=== PATIENT | male | born 1945 | race Caucasian/White ===

== ENCOUNTER 2017-12-13 11:41 | Inpatient (IN) | payer MEDICARE ==
[~2017-12-13] VITALS: Ht 177.8 cm; Wt 85.2 kg
[2017-12-13] VITALS (18 sets, daily range): BP systolic 104–158; BP diastolic 65–87; PULSE 90–98; RESP 18–34; TEMP 97.4–98; O2SAT 91–97
[2017-12-13] MEDS ORDERED: FUROSEMIDE 100 MG/10 ML VIAL IVP ONE (14:00)
[2017-12-13] MEDS: RESP: ALBUTEROL 2.5 MG/IPRATROPIUM 0.5 MG NEB (SCH) INH ×2 (14:11→14:12)
--- NOTE | 2017-12-13 14:20 | PD ---
HPI Chief Complaint: Respiratory Symptoms Time Seen by Provider: 13:46 Travel History International Travel<30 days: No Contact w/Intl Traveler<30days: No Traveled to known affect area: No History of Present Illness HPI This patient complains of shortness of breath and leg swelling. Duration is 1- 2 weeks. Symptoms severity is moderate. Denying fever. He reports history of COPD. He says that his physician has recently ordered home oxygen although he is not receiving any at home yet. Does have nebulizer treatment. He has developed prominent edema of the legs. No alleviating factors. No exacerbating factors. He does not smoke at this time. [facility] Social History Alcohol Use: No Tobacco Use: No Substance Use: No Allergies-Medications (Allergen,Severity, Reaction): Coded Allergies: No Known Allergies (Verified Allergy, Unknown, 02/12/05) Reported Meds & Prescriptions Reported Meds & Active Scripts Active Review of Systems General / Constitutional: No: Fever Eyes: No: Visual changes HENT: No: Headaches Cardiovascular: Positive: Edema, No: Chest Pain or Discomfort Respiratory: Positive: Cough, Shortness of Breath Gastrointestinal: No: Abdominal Pain Genitourinary: No: Dysuria Musculoskeletal: Positive: Edema, No: Pain Skin: No Rash Neurologic: No: Weakness Psychiatric: No: Depression Endocrine: No: Polydipsia Hematologic/Lymphatic: No: Easy Bruising Physical Exam Narrative GENERAL: Well-nourished, well-developed patient in no apparent distress. SKIN: Focused skin assessment reveals no rash and nodules. Skin is Warm and dry. HEAD: Atraumatic. Normocephalic. EYES: Pupils equal and round. No scleral icterus. No injection or drainage. ENT: No nasal bleeding or discharge. Mucous membranes pink and moist. NECK: Trachea midline. No JVD. CARDIOVASCULAR: Regular rate and rhythm. No murmur appreciated. RESPIRATORY: No accessory muscle use. Diffuse rhonchi with some expiratory wheeze. There is some sparse basilar crackles. Breath sounds equal bilaterally. GASTROINTESTINAL: Abdomen soft, non-tender, nondistended. Hepatic and splenic margins not palpable. MUSCULOSKELETAL: No obvious deformities. No clubbing. No cyanosis. Severe pitting edema of the feet and lower legs and to some degree upper legs. NEUROLOGICAL: Awake and alert. No obvious cranial nerve deficits. Motor grossly within normal limits. Normal speech. PSYCHIATRIC: Appropriate mood and affect; insight and judgment normal. Data Data Last Documented VS Vital Signs Date Time Temp Pulse Resp B/P (MAP) Pulse Ox O2 Delivery O2 Flow Rate FiO2 12/13/17 15:46 91 20 96 Nasal Cannula 2.00 12/13/17 15:42 140/85 (103) 12/13/17 12:17 97.7 Orders Orders Complete Blood Count With Diff (12/13/17 13:59) Basic Metabolic Panel (Bmp) (12/13/17 13:59) B-Type Natriuretic Peptide (12/13/17 13:59) Ckmb (Isoenzyme) Profile (12/13/17 13:59) Troponin I (12/13/17 13:59) Iv Access Insert/Monitor (12/13/17 13:59) Electrocardiogram (12/13/17 13:59) Ecg Monitoring (12/13/17 13:59) Oximetry (12/13/17 13:59) Oxygen Administration (12/13/17 13:59) Chest, Single Ap (12/13/17 13:59) Sodium Chloride 0.9% Flush (Ns Flush) (12/13/17 14:00) Albuterol-Ipratropium Neb (Duoneb Neb) (12/13/17 14:00) Furosemide Inj (Lasix Inj) (12/13/17 14:00) CKMB (12/13/17 14:20) CKMB% (12/13/17 14:20) Hepatic Functional Panel (12/13/17 15:28) 3% Saline Inj (Sodium Chloride 3% Inj) (12/13/17 15:30) Hepatic Functional Panel (12/13/17 14:20) Labs Laboratory Tests Test 12/13/17 14:20 White Blood Count 22.2 TH/MM3 Red Blood Count 4.98 MIL/MM3 Hemoglobin 15.5 GM/DL Hematocrit 45.3 % Mean Corpuscular Volume 91.0 FL Mean Corpuscular Hemoglobin 31.1 PG Mean Corpuscular Hemoglobin Concent 34.2 % Red Cell Distribution Width 11.9 % Platelet Count 507 TH/MM3 Mean Platelet Volume 5.8 FL CBC Comment AUTO DIFF Differential Total Cells Counted 100 Neutrophils % (Manual) 63 % Lymphocytes % 35 % Monocytes % 2 % Neutrophils # (Manual) 14.0 TH/MM3 Differential Comment FINAL DIFF MANUAL Platelet Estimate HIGH Platelet Morphology Comment NORMAL Blood Urea Nitrogen 9 MG/DL Creatinine 0.57 MG/DL Random Glucose 104 MG/DL Calcium Level 8.2 MG/DL Sodium Level 106 MEQ/L Potassium Level 4.0 MEQ/L Chloride Level 65 MEQ/L Carbon Dioxide Level 31.6 MEQ/L Anion Gap 9 MEQ/L Estimat Glomerular Filtration Rate 140 ML/MIN Total Creatine Kinase 993 U/L Troponin I LESS THAN 0.02 NG/ML B-Type Natriuretic Peptide 38 PG/ML MDM Medical Decision Making Medical Screen Exam Complete: Yes Emergency Medical Condition: Yes Medical Record Reviewed: Yes Differential Diagnosis CHF, COPD, pneumonia Narrative Course I have reviewed the patient's electronic medical record. IV placed I gave him 60 mg IV Lasix I gave him 2 nebulizer treatments I reviewed his chest x-ray which shows no consolidation or pneumothorax I reviewed his EKG which shows sinus rhythm without ectopy or ST elevation Extended cardiac monitoring shows sinus rhythm without ectopy IV placed CBC is noted metabolic profile is markedly abnormal with a sodium of 106 making him critically ill and making him at risk for seizure and altered mental status CK is 900s with normal MB percent Troponin is normal Patient has history of low sodium in the past but can't recall a specific number or reason why. He does admit to drinking 6 beers Daily. Also he takes a diuretic. I've added LFTs. Given that he is markedly fluid overloaded I'm starting 3% sodium chloride Patient be admitted by the hospitalist who is evaluating him right now. He recommends ICU admission. Critical Care Narrative Aggregate critical care time was 38 minutes. Time to perform other separately billable procedures was not included in the critical care time. My time did not include minutes spent treating any other patients simultaneously or on activities that did not directly contribute to the patient's treatment. The services I provided to this patient were to treat and/or prevent clinically significant deterioration that could result in: Cardiac arrhythmia, seizure, hypoxemic brain injury I provided critical care services requiring my management, as noted below: Chart data review, documentation time, medication orders and management, vital sign assessments/reviewing monitor data, ordering and reviewing lab tests, ordering and interpreting/reviewing x-rays and diagnostic studies, care of the patient and discussion of the patient with the admitting physicians. Diagnosis Primary Impression: Hyponatremia Additional Impressions: Leg edema Shortness of breath Admitting Information Admitting Physician Requests: Admit Armin Lemos MD Dec 13, 2017 14:20
[2017-12-13] MEDS: SODIUM CHLORIDE 0.9% FLUSH 10 ML FLUSH IVF PRN ×2 (14:27→15:35)
[2017-12-13 14:28] LABS: HEMATOCRIT 45.3 % (39.0-51.0); HEMOGLOBIN 15.5 GM/DL (13.0-17.0); MEAN CORPUSCULAR HEMOGLOBIN 31.1 PG (27.0-34.0); MEAN CORPUSCULAR HGB CONC 34.2 % (32.0-36.0); MEAN PLATELET VOLUME 5.8 FL (7.0-11.0); PLATELET COUNT 507 TH/MM3 (150-450); RED BLOOD COUNT 4.98 MIL/MM3 (4.50-5.90); RED CELL DISTRIBUTION WIDTH 11.9 % (11.6-17.2); WHITE BLOOD COUNT 22.2 TH/MM3 (4.0-11.0)
--- NOTE | 2017-12-13 14:48 | RADRPT ---
EXAM DATE/TIME: 12/13/2017 14:25 [place] COMPARISON: No previous studies available for comparison. INDICATIONS : Short of breath MEDICAL HISTORY : Chronic obstructive pulmonary disease. SURGICAL HISTORY : None. ENCOUNTER: Initial ACUITY: 2 weeks PAIN SCORE: 0/10 LOCATION: Bilateral chest FINDINGS: A single view of the chest demonstrates the lungs to be symmetrically aerated without evidence of mas s, infiltrate or effusion. There is hyperaeration bilaterally with chronic interstitial changes. The re is some scarring in the right costophrenic angle. The cardiomediastinal contours are unremarkable. Osseous structures are intact. CONCLUSION: 1. No acute infiltrates. 2. Hyperaeration with chronic interstitial changes bilaterally. Kishan Alex MD on December 13, 2017 at 14:45 Board Certified Radiologist. This report was verified electronically.
[2017-12-13 15:01] LABS: BICARBONATE 31.6 MEQ/L (21.0-32.0); BLOOD UREA NITROGEN 9 MG/DL (7-18); CALCIUM 8.2 MG/DL (8.5-10.1); CHLORIDE 65 MEQ/L (98-107); CREATININE 0.57 MG/DL (0.60-1.30); GLOMERULAR FILTRATION RATE 140 ML/MIN (>89); GLUCOSE,RANDOM 104 MG/DL (74-106); TROPONIN I LESS THAN 0.02 NG/ML (0.02-0.05)
[2017-12-13 15:19] LABS: LYMPHOCYTES 35 % (9-44); MONOCYTES 2 % (0-8); POLYS (SEG NEUTROPHILS) 63 % (16-70); SODIUM (NA) 106 MEQ/L (136-145)
[2017-12-13] MEDS ORDERED: 3% SALINE INJ 250 ML IV ONE (15:30)
[2017-12-13] MEDS ORDERED: VENTAER INH (16:04)
[2017-12-13] MEDS ORDERED: AMLO5TAB2 PO (16:04)
[2017-12-13] MEDS ORDERED: PRED20 PO (16:04)
[2017-12-13] MEDS ORDERED: LEVO500T8 PO (16:04)
[2017-12-13] MEDS ORDERED: UMEC1AER INH (16:04)
[2017-12-13] MEDS ORDERED: VALS1TAB65 PO (16:04)
[2017-12-13 16:12] LABS: ALBUMIN 3.2 GM/DL (3.4-5.0); ALKALINE PHOSPHATASE 82 U/L (45-117); ALT (GPT) 67 U/L (12-78); AST (GOT) 103 U/L (15-37); DIRECT BILIRUBIN ADULT 0.3 MG/DL (0.0-0.2); INDIRECT BILIRUBIN 0.6 MG/DL (0.0-0.8); TOTAL BILIRUBIN ADULT 0.9 MG/DL (0.2-1.0); TOTAL PROTEIN 7.4 GM/DL (6.4-8.2)
--- NOTE | 2017-12-13 16:14 | HHI.HP ---
[facility] Amirah Jane M.D. Admission Diagnosis critical hyponatremia,leg edema, short of breath Diagnoses: Chief Complaint: Slowed thinking Travel History International Travel<30 Days: No Contact w/Intl Traveler <30 Da: No Traveled to Known Affected Are: No History of Present Illness 72-year-old white male being admitted for symptomatic severe hyponatremia. Patient was in his usual state of health until about a few days ago when his significant other and noted that he he started becoming very slow in his thinking. She says that he became more fatigued in his energy level and slowed in his responses. In addition to that he had some increased shortness of breath and increased lower tremor he edema and went to his fish packer as well as just recently prescribed steroids as well as Lasix. He was brought in today due to the persistent in his [employer] symptoms and his inability to walk and carry his own weight. Significant other states that the patient doesn't make sense but is just very slow in his thinking. Patient herself denies any new pain anywhere. Review of Systems Except as stated in HPI: all other systems reviewed are Neg Past Family Social History Past Medical History Chronic hyponatremia Allergies: Coded Allergies: No Known Allergies (Verified Allergy, Unknown, 02/12/05) Family History No family history of liver disease or colorectal cancer Social History He does smoke, and does drink 3-4 beers a day for many years Physical Exam Vital Signs Vital Signs Date Time Temp Pulse Resp B/P (MAP) Pulse Ox O2 Delivery O2 Flow Rate FiO2 12/13/17 15:46 91 20 96 Nasal Cannula 2.00 12/13/17 15:42 96 20 140/85 (103) 95 Nasal Cannula 2.00 12/13/17 14:57 92 18 158/87 (110) 96 Nasal Cannula 2.00 12/13/17 14:15 92 Nasal Cannula 2.00 12/13/17 14:00 96 20 150/87 (108) 95 Nasal Cannula 2.00 12/13/17 13:30 20 94 Nasal Cannula 2.00 12/13/17 13:30 94 Nasal Cannula 2.00 12/13/17 13:20 92 22 94 Nasal Cannula 2.00 12/13/17 12:17 97.7 97 18 145/79 (101) 95 12/13/17 11:45 22 90 Nasal Cannula 2.00 Physical Exam VS: afebrile GENERAL: Elderly white male, obese, lying in bed, awake, SKIN: Warm and dry. EYES: No scleral icterus. No injection or drainage. ENT: No nasal bleeding or discharge. Mucous membranes pink and moist. CARDIOVASCULAR: Regular rate and rhythm. no murmurs. Does have moderate lower extremity edema bilaterally RESPIRATORY: No accessory muscle use. Clear to auscultation. Breath sounds equal bilaterally. GASTROINTESTINAL: Abdomen soft, non-tender, nondistended. Extremities: No clubbing, cyanosis. Does have some mild erythema diffusely over both lower legs MUSCULOSKELETAL: grossly intact ROM with 5/5 strength in upper and lower extremities proximally; adequate muscle bulk and tone for age and habitus NEUROLOGICAL: Awake and alert. No obvious cranial nerve deficits. No facial droop nor slurred speech noted. PSYCHIATRIC: Appropriate mood and affect; insight and judgment normal. has slowed responses but does maintain good eye contact and responds appropriately Laboratory Laboratory Tests Test 12/13/17 14:20 White Blood Count 22.2 Red Blood Count 4.98 Hemoglobin 15.5 Hematocrit 45.3 Mean Corpuscular Volume 91.0 Mean Corpuscular Hemoglobin 31.1 Mean Corpuscular Hemoglobin Concent 34.2 Red Cell Distribution Width 11.9 Platelet Count 507 Mean Platelet Volume 5.8 CBC Comment AUTO DIFF Differential Total Cells Counted 100 Neutrophils % (Manual) 63 Lymphocytes % 35 Monocytes % 2 Neutrophils # (Manual) 14.0 Differential Comment FINAL DIFF MANUAL Platelet Estimate HIGH Platelet Morphology Comment NORMAL Blood Urea Nitrogen 9 Creatinine 0.57 Random Glucose 104 Calcium Level 8.2 Sodium Level 106 Potassium Level 4.0 Chloride Level 65 Carbon Dioxide Level 31.6 Anion Gap 9 Estimat Glomerular Filtration Rate 140 Total Creatine Kinase 993 Creatine Kinase MB 31.6 Creatine Kinase MB % 3.2 Troponin I LESS THAN 0.02 B-Type Natriuretic Peptide 38 Result Diagram: 12/13/17 1420 12/13/17 1420 Imaging Last Impressions Chest X-Ray 12/13/17 1359 Signed Impressions: Service Date/Time: Wednesday, December 13, 2017 14:25 - CONCLUSION: 1. No acute infiltrates. 2. Hyperaeration with chronic interstitial changes bilaterally. Kishan Alex MD Caprinmariann VTE Risk Assessment Caprini VTE Risk Assessment: Mod/High Risk (score >= 2) Caprini Risk Assessment Model Point Value = 1 Point Value = 2 Point Value = 3 Point Value = 5 Age 41-60 Minor surgery BMI > 25 kg/m2 Swollen legs Varicose veins or History of unexplained or recurrent spontaneous Oral contraceptives or hormone replacement Sepsis (< 1 month) Serious lung disease, including pneumonia (< 1 month) Abnormal pulmonary function Acute myocardial infarction Congestive heart failure (< 1 month) History of inflammatory bowel disease Medical patient at bed rest Age 61-74 Arthroscopic surgery Major open surgery (> 45 min) Laparoscopic surgery (> 45 min) Malignancy Confined to bed (> 72 hours) Immobilizing plaster cast Central venous access Age >= 75 History of VTE Family history of VTE Factor V Leiden Prothrombin [id number] Lupus anticoagulant Anticardiolipin antibodies Elevated serum homocysteine Heparin-induced thrombocytopenia Other congenital or acquired thrombophilia Stroke (< 1 month) Elective arthroplasty Hip, pelvis, or leg fracture Acute spinal cord injury (< 1 month) Prophylaxis Regimen Total Risk Factor Score Risk Level Prophylaxis Regimen 0-1 Low Early ambulation 2 Moderate Order ONE of the following: *Sequential Compression Device (SCD) *Heparin 5000 units SQ BID 3-4 Higher Order ONE of the following medications: *Heparin 5000 units SQ TID *Enoxaparin/Lovenox 40 mg SQ daily (WT < 150 kg, CrCl > 30 mL/min) *Enoxaparin/Lovenox 30 mg SQ daily (WT < 150 kg, CrCl > 10-29 mL/min) *Enoxaparin/Lovenox 30 mg SQ BID (WT < 150 kg, CrCl > 30 mL/min) AND/OR *Sequential Compression Device (SCD) 5 or more Highest Order ONE of the following medications: *Heparin 5000 units SQ TID (Preferred with Epidurals) *Enoxaparin/Lovenox 40 mg SQ daily (WT < 150 kg, CrCl > 30 mL/min) *Enoxaparin/Lovenox 30 mg SQ daily (WT < 150 kg, CrCl > 10-29 mL/min) *Enoxaparin/Lovenox 30 mg SQ BID (WT < 150 kg, CrCl > 30 mL/min) AND *Sequential Compression Device (SCD) Assessment and Plan Assessment and Plan metabolic encephalopathy - Likely from severe hyponatremia 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 Admitting to ICU, having been started on 3% normal saline in the emergency room. Will monitor sodium levels closely. We'll administer 3% normal saline at 30 miles an hour for 2 hours, nursing instructed to notify M.D. about sodium level after this amount has been transfused and then M.D. is to make transition afterwards accordingly with either hypertonic normal saline are normal saline. unstable gait - ordering b12, mg, phos, and tsh levels - fall precautions, ST/OT/PT COPD - continue home inhalers, finish home prednisone course LE edema - lasix possible rhabdomyolysis - from ETOH, hydration based upon Na level lovenox fall precautions Physician Certification 2 Midnight Certification Type: Admission for Inpatient Services Order for Inpatient Services The services are ordered in accordance with Medicare regulations or non- Medicare payer requirements, as applicable. In the case of services not specified as inpatient-only, they are appropriately provided as inpatient services in accordance with the 2-midnight benchmark. Estimated LOS (days): 3 3 days is the estimated time the patient will need to remain in the hospital, assuming treatment plan goals are met and no additional complications. Post-Hospital Plan: Not yet determined Jarrod Grijalva MD Dec 13, 2017 16:14
[2017-12-13 17:03] LABS: INTERNATIONAL NORMALIZED RATIO 1.1 RATIO; MAGNESIUM 1.8 MG/DL (1.5-2.5); PROTHROMBIN TIME - PATIENT 10.7 SEC (9.8-11.6)
[2017-12-13 17:07] LABS: PHOSPHORUS 2.6 MG/DL (2.5-4.9)
[2017-12-13] MEDS ORDERED: CHLORHEXIDINE GLUCONATE 2 % 1 PACK (2 CLOTHS)(extra cloths) TOPICAL PRN (18:15)
[2017-12-13] MEDS: RESP: ALBUTEROL 2.5 MG/3 ML NEB (SCH) NEB (20:00)
[2017-12-13] MEDS: predniSONE 20 MG TAB PO SCH (20:42)
[2017-12-13] MEDS ORDERED: [UNRECOGNIZED DRUG - OTHER] IV ONE (23:45)
[2017-12-14] VITALS (34 sets, daily range): BP systolic 104–157; BP diastolic 65–105; PULSE 74–102; RESP 14–25; TEMP 97.1–98.3; O2SAT 78–100
[2017-12-14] MEDS: CHLORHEXIDINE GLUCONATE 2 % 1 PACK (2 CLOTHS)(taper/protocol) TOPICAL SCH (04:00)
[2017-12-14 07:00] LABS: AUTOMATED NEUTROPHIL # 13.9 TH/MM3 (1.8-7.7); BASOPHIL % 0.2 % (0.0-2.0); EOSINOPHIL % 0.2 % (0.0-4.0); HEMATOCRIT 42.3 % (39.0-51.0); HEMOGLOBIN 13.8 GM/DL (13.0-17.0); LYMPH % 31.7 % (9.0-44.0); LYMPHOCYTE # 7.1 TH/MM3 (1.0-4.8); MEAN CORPUSCULAR HEMOGLOBIN 29.9 PG (27.0-34.0); MEAN CORPUSCULAR HGB CONC 32.5 % (32.0-36.0); MEAN PLATELET VOLUME 6.8 FL (7.0-11.0); MONO % 6.7 % (0.0-8.0); MONOCYTE # 1.5 TH/MM3 (0-0.9); NEUT % 61.2 % (16.0-70.0); PLATELET COUNT 412 TH/MM3 (150-450); RED CELL DISTRIBUTION WIDTH 11.7 % (11.6-17.2); WHITE BLOOD COUNT 22.5 TH/MM3 (4.0-11.0)
[2017-12-14 07:31] LABS: BICARBONATE 32.1 MEQ/L (21.0-32.0); CALCIUM 7.8 MG/DL (8.5-10.1); CREATININE 0.45 MG/DL (0.60-1.30)
[2017-12-14] MEDS: RESP: ALBUTEROL 2.5 MG/3 ML NEB (SCH) NEB ×3 (07:47→19:48)
[2017-12-14 08:07] LABS: BANDS 3 % (0-6); LYMPHOCYTES 20 % (9-44); MONOCYTES 3 % (0-8); NEUTROPHIL # MANUAL DIFF 17.3 TH/MM3 (1.8-7.7); POLYS (SEG NEUTROPHILS) 74 % (16-70)
[2017-12-14] MEDS ORDERED: POTASSIUM CHLORIDE 10 MEQ CONTROLLED RELEASE TAB PO ONE (08:30)
[2017-12-14] MEDS ORDERED: 3% SALINE INJ 250 ML IV ONE ×2 (08:45→19:00)
[2017-12-14] MEDS: UMECLIDINIUM 62.5 MCG/VILANTEROL 25 MCG INHALER INH SCH (09:00)
--- NOTE | 2017-12-14 13:42 | HHI.PR ---
Subjective Remarks Nursing denies any deterioration since last night. The patient's significant other thinks that his mentation is just slightly improved. Patient himself has no further complaints. Objective Vital Signs Date Time Temp Pulse Resp B/P (MAP) Pulse Ox O2 Delivery O2 Flow Rate FiO2 12/14/17 11:00 76 14 118/71 (87) 100 12/14/17 10:00 78 14 127/72 (90) 93 12/14/17 10:00 84 12/14/17 09:12 84 17 150/80 (103) 92 12/14/17 09:00 86 19 144/85 (104) 92 12/14/17 08:16 86 17 149/84 (105) 95 12/14/17 08:01 97.1 94 24 157/92 (113) 91 12/14/17 08:00 102 18 94 12/14/17 08:00 84 12/14/17 07:49 96 3.00 12/14/17 07:46 74 14 133/78 (96) 97 12/14/17 07:46 74 14 133/78 (96) 97 12/14/17 07:31 74 14 129/78 (95) 97 12/14/17 07:31 74 14 129/78 (95) 97 12/14/17 07:16 76 15 136/78 (97) 96 12/14/17 07:16 76 15 136/78 (97) 96 12/14/17 07:01 74 15 128/81 (97) 95 12/14/17 07:01 74 15 128/81 (97) 95 12/14/17 07:00 74 16 94 12/14/17 07:00 74 16 94 12/14/17 06:00 80 12/14/17 06:00 80 17 151/90 (110) 93 12/14/17 05:00 78 16 136/72 (93) 92 12/14/17 04:00 97.7 84 19 138/81 (100) 92 12/14/17 04:00 84 12/14/17 03:00 86 18 125/86 (99) 92 12/14/17 02:00 86 12/14/17 02:00 86 20 131/73 (92) 95 12/14/17 01:00 88 19 122/72 (89) 95 12/14/17 00:00 92 12/14/17 00:00 98.3 92 21 121/73 (89) 95 12/13/17 23:00 92 21 134/76 (95) 93 12/13/17 22:00 90 12/13/17 22:00 90 34 104/66 (79) 91 12/13/17 21:00 98 22 137/80 (99) 94 12/13/17 20:00 96 12/13/17 20:00 94 Nasal Cannula 3.00 12/13/17 20:00 98.0 96 20 137/78 (97) 94 12/13/17 19:00 94 22 148/84 (105) 94 12/13/17 18:15 92 19 136/83 (100) 97 12/13/17 18:00 94 19 143/78 (99) 95 12/13/17 18:00 93 12/13/17 17:55 92 20 120/65 (83) 97 12/13/17 17:52 97.4 94 21 113/79 (90) 96 12/13/17 17:45 96 23 94 12/13/17 16:53 18 141/83 (102) 93 Nasal Cannula 2.00 12/13/17 16:30 92 18 141/77 (98) 93 Nasal Cannula 2.00 12/13/17 15:46 91 20 96 Nasal Cannula 2.00 12/13/17 15:42 96 20 140/85 (103) 95 Nasal Cannula 2.00 12/13/17 14:57 92 18 158/87 (110) 96 Nasal Cannula 2.00 12/13/17 14:15 92 Nasal Cannula 2.00 12/13/17 14:00 96 20 150/87 (108) 95 Nasal Cannula 2.00 I/O 12/13/17 12/13/17 12/13/17 12/14/17 12/14/17 12/14/17 07:00 15:00 23:00 07:00 15:00 23:00 Intake Total 200 ml Output Total 2200 ml 500 ml Balance -2200 ml -300 ml Intake IV Total 200 ml Output Urine Total 2200 ml 500 ml Bladder Scan Volume Amount 384 ml Result Diagram: 12/14/17 0552 12/14/17 0552 Objective Remarks Patient lying in bed, sleeping, awoken which point he is alert Lungs are clear bilaterally, unlabored breathing No tremors or shakes Slightly improved lower extremity edema from yesterday A/P Assessment and Plan metabolic encephalopathy - Likely from severe hyponatremia, anticipate further improvement Severe asymptomatic 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 Has been improving gradually and to my satisfaction with 3% normal saline at a very steady rate. Continue current infusion rate at 15 mL's an hour. Monitor sodium closely, keep in ICU new hypokalemia - likely from fluid imbalance, oral KCL, checking Mg unstable gait - B12 magnesium TSH's and CK are all within normal limits - fall precautions, ST/OT/PT COPD - continue home inhalers, finish home prednisone course LE edema - Continue Lasix, monitor BMP possible rhabdomyolysis - from ETOH, hydration based upon Na level as above lovenox fall precautions Jarrod Grijalva MD Dec 14, 2017 13:42
--- NOTE | 2017-12-14 13:48 | EKG ---
Date Performed: 12/13/2017 Time Performed: 15:07:31 PTAGE: 72 years EKG: Sinus rhythm WITH OCCASIONAL SUPRAVENTRICULAR PREMATURE COMPLEXES POSSIBLE ANTERIOR MYOCARDIAL INFARCTION ABNORMA L ECG NO PREVIOUS TRACING DOCTOR: Jamal Linn Interpretating Date/Time 12/16/2017 07:22:57
[2017-12-14 15:59] LABS: BICARBONATE 32.9 MEQ/L (21.0-32.0); CREATININE 0.5 MG/DL (0.60-1.30)
[2017-12-14] MEDS: predniSONE 20 MG TAB PO SCH (19:19)
[2017-12-15] VITALS (24 sets, daily range): BP systolic 106–145; BP diastolic 66–94; PULSE 78–100; RESP 13–27; TEMP 97.3–98; O2SAT 90–98
[2017-12-15] MEDS: CHLORHEXIDINE GLUCONATE 2 % 1 PACK (2 CLOTHS)(taper/protocol) TOPICAL SCH (04:00)
[2017-12-15] MEDS ORDERED: FUROSEMIDE 20 MG/2 ML VIAL IV PUSH ONE (08:15)
[2017-12-15] MEDS: RESP: ALBUTEROL 2.5 MG/3 ML NEB (SCH) NEB ×3 (08:21→19:59)
[2017-12-15 08:55] LABS: BICARBONATE 33.4 MEQ/L (21.0-32.0); CALCIUM 8.6 MG/DL (8.5-10.1); CREATININE 0.63 MG/DL (0.60-1.30)
[2017-12-15 09:18] LABS: AUTOMATED NEUTROPHIL # 12.3 TH/MM3 (1.8-7.7); BASOPHIL # 0.2 TH/MM3 (0-0.2); BASOPHIL % 0.9 % (0.0-2.0); HEMATOCRIT 47.7 % (39.0-51.0); LYMPH % 37.6 % (9.0-44.0); LYMPHOCYTE # 8.2 TH/MM3 (1.0-4.8); MEAN CELL VOLUME 91.6 FL (80.0-100.0); MEAN CORPUSCULAR HEMOGLOBIN 30.6 PG (27.0-34.0); MEAN CORPUSCULAR HGB CONC 33.4 % (32.0-36.0); MEAN PLATELET VOLUME 6.7 FL (7.0-11.0); MONO % 4.5 % (0.0-8.0); PLATELET COUNT 441 TH/MM3 (150-450); RED BLOOD COUNT 5.21 MIL/MM3 (4.50-5.90); RED CELL DISTRIBUTION WIDTH 11.9 % (11.6-17.2); WHITE BLOOD COUNT 21.7 TH/MM3 (4.0-11.0)
[2017-12-15 09:19] LABS: HEMOGLOBIN 15.9 GM/DL (13.0-17.0)
[2017-12-15 09:43] LABS: BANDS 3 % (0-6); LYMPHOCYTES 17 % (9-44); MONOCYTES 2 % (0-8); NEUTROPHIL # MANUAL DIFF 17.6 TH/MM3 (1.8-7.7); POLYS (SEG NEUTROPHILS) 78 % (16-70)
[2017-12-15] MEDS ORDERED: 3% SALINE INJ 500 ML IV SCH (10:15)
--- NOTE | 2017-12-15 10:20 | HHI.PR ---
Subjective Remarks Nursing denies any deterioration since last night. Patient himself says he feels much more mentally sharp today. Has no new complaints. Objective Vital Signs Date Time Temp Pulse Resp B/P (MAP) Pulse Ox O2 Delivery O2 Flow Rate FiO2 12/15/17 08:22 94 Nasal Cannula 3.00 12/15/17 07:00 90 19 140/85 (103) 94 12/15/17 06:00 89 12/15/17 06:00 78 16 114/71 (85) 94 12/15/17 05:00 82 17 112/70 (84) 94 12/15/17 04:00 97.5 84 22 118/72 (87) 94 12/15/17 04:00 89 12/15/17 03:00 84 17 133/74 (93) 94 12/15/17 02:00 86 27 132/81 (98) 94 12/15/17 02:00 88 12/15/17 01:00 82 16 125/76 (92) 95 12/15/17 00:00 84 12/15/17 00:00 97.6 84 16 131/74 (93) 95 12/14/17 23:00 92 20 112/65 (81) 93 12/14/17 22:00 94 21 149/77 (101) 91 12/14/17 22:00 84 12/14/17 21:00 88 17 140/83 (102) 92 12/14/17 20:00 97.6 90 17 151/92 (111) 95 12/14/17 20:00 100 12/14/17 20:00 91 Nasal Cannula 3.00 12/14/17 19:48 93 Nasal Cannula 2.00 12/14/17 19:00 88 19 136/81 (99) 92 12/14/17 18:00 90 23 145/84 (104) 90 12/14/17 18:00 94 12/14/17 17:00 82 17 116/72 (87) 93 12/14/17 16:04 98 25 154/81 (105) 78 12/14/17 16:04 98.1 98 25 154/81 (105) 78 12/14/17 16:00 90 20 147/105 (119) 95 12/14/17 16:00 92 12/14/17 15:00 82 14 104/71 (82) 95 12/14/17 14:00 90 20 148/86 (106) 91 12/14/17 14:00 81 12/14/17 13:00 84 17 135/73 (93) 90 12/14/17 12:00 84 18 138/79 (98) 92 12/14/17 11:00 76 14 118/71 (87) 100 12/14/17 11:00 76 14 118/71 (87) 100 I/O 12/14/17 12/14/17 12/14/17 12/15/17 12/15/17 12/15/17 06:59 14:59 22:59 06:59 14:59 22:59 Intake Total 200 ml 360 ml 233 ml Output Total 500 ml 1120 ml 1000 ml Balance -300 ml -760 ml -767 ml Intake Oral 360 ml 10 ml IV Total 200 ml 223 ml Output Urine Total 500 ml 1120 ml 1000 ml Bladder Scan Volume Amount 384 ml # Bowel Movements 0 Result Diagram: 12/15/17 0829 12/15/17 0829 Objective Remarks Patient lying in bed, sleeping, easily awoken, appears much sharper today Lung sounds are clear bilaterally A/P Assessment and Plan metabolic encephalopathy - Significantly improved Severe asymptomatic hyponatremia - Improving as expected with hypertonic saline, continue judicious slow rate infusion, repeat sodium later today hypokalemia - Improved unstable gait - B12 magnesium TSH's and CK are all within normal limits - fall precautions, ST/OT/PT COPD - continue home inhalers, finish home prednisone course LE edema - Continue Lasix, monitor BMP possible rhabdomyolysis - rechecking CK in AM Leukocytosis - Likely from steroids, holding steady lovenox fall precautions Jarrod Grijalva MD Dec 15, 2017 10:20
[2017-12-15] MEDS: FUROSEMIDE 40 MG/4 ML VIAL IV PUSH SCH (12:42)
[2017-12-15] MEDS: UMECLIDINIUM 62.5 MCG/VILANTEROL 25 MCG INHALER INH SCH (12:42)
[2017-12-15] MEDS: predniSONE 20 MG TAB PO SCH (19:40)
[2017-12-15] MEDS: SODIUM CHLORIDE 0.9% FLUSH 10 ML FLUSH IVF PRN (22:55)
[2017-12-16] MEDS: CHLORHEXIDINE GLUCONATE 2 % 1 PACK (2 CLOTHS)(taper/protocol) TOPICAL SCH (04:00)
[2017-12-16 06:42] LABS: CALCIUM 8.2 MG/DL (8.5-10.1); CREATININE 0.51 MG/DL (0.60-1.30)
[2017-12-16] MEDS: RESP: ALBUTEROL 2.5 MG/3 ML NEB (SCH) NEB ×3 (07:50→19:59)
[2017-12-16 07:52] VITALS: O2SAT 96
[2017-12-16 08:00] VITALS: BP 152/86; PULSE 98; RESP 20; TEMP 96.9; O2SAT 94
[2017-12-16] MEDS: UMECLIDINIUM 62.5 MCG/VILANTEROL 25 MCG INHALER INH SCH (08:42)
[2017-12-16] MEDS: FUROSEMIDE 40 MG/4 ML VIAL IV PUSH SCH (08:42)
[2017-12-16 12:00] VITALS: BP 122/72; PULSE 86; RESP 22; TEMP 96.8; O2SAT 94
--- NOTE | 2017-12-16 15:50 | HHI.PR ---
Subjective Remarks Nursing denies any deterioration since last night. Patient himself says he feels much more mentally sharp today. Has no new complaints. Objective Vital Signs Date Time Temp Pulse Resp B/P (MAP) Pulse Ox O2 Delivery O2 Flow Rate FiO2 12/16/17 13:17 Nasal Cannula 12/16/17 12:00 96.8 86 22 122/72 (89) 94 12/16/17 08:00 96.9 98 20 152/86 (108) 94 12/16/17 07:52 96 Nasal Cannula 2.00 12/15/17 21:00 92 18 137/76 (96) 94 12/15/17 20:00 97.7 86 16 124/78 (93) 94 12/15/17 20:00 86 12/15/17 19:59 94 Nasal Cannula 3.00 12/15/17 19:00 92 Nasal Cannula 3.00 12/15/17 19:00 86 16 127/73 (91) 91 12/15/17 19:00 86 12/15/17 19:00 86 16 127/73 (91) 91 12/15/17 18:00 92 12/15/17 18:00 92 18 123/67 (85) 95 12/15/17 17:00 90 18 106/78 (87) 90 12/15/17 16:00 90 12/15/17 16:00 90 18 124/66 (85) 94 I/O 12/15/17 12/15/17 12/15/17 12/16/17 12/16/17 12/16/17 07:00 15:00 23:00 07:00 15:00 23:00 Intake Total 233 ml 240 ml 230 ml Output Total 1000 ml 1350 ml Balance -767 ml -1110 ml 230 ml Intake Oral 10 ml 240 ml IV Total 223 ml 230 ml Output Urine Total 1000 ml 1350 ml # Bowel Movements 0 Result Diagram: 12/15/17 0829 12/16/17 0550 Objective Remarks Patient lying in bed, sleeping, easily awoken, appears much sharper today Lung sounds are clear bilaterally A/P Assessment and Plan hyponatremia - Improved but still pretty moderate at 119. Has already received a substantial amount of hypertonic saline. Thus I have consulted nephrology to help manage with this particular metabolic disturbance. metabolic encephalopathy - Resolved hypokalemia - recheck and replenish accordingly unstable gait - B12 magnesium TSH's and CK are all within normal limits - fall precautions, ST/OT/PT COPD - continue home inhalers, finish home prednisone course LE edema - resolved, will let renal decide lasix if ok any further possible rhabdomyolysis - rechecking CK in AM Leukocytosis - Likely from steroids, holding steady lovenox fall precautions Jarrod Grijalva MD Dec 16, 2017 15:50
[2017-12-16 16:00] VITALS: BP 118/66; PULSE 84; RESP 20; TEMP 97; O2SAT 94
[2017-12-16] MEDS: predniSONE 20 MG TAB PO SCH (17:26)
--- NOTE | 2017-12-16 17:48 | MB ---
cc: ROGER DE LOS SANTOS MD DATE OF CONSULTATION 12/16/2017 REASON FOR CONSULTATION Hyponatremia for evaluation. HISTORY OF PRESENT ILLNESS This is a 72-year-old male with past medical history of chronic edema of the legs, history of chronic hyponatremia came to the hospital with complaint of shortness of breath and worsening edema of the legs. I was called to see the patient because of low sodium level. His sodium level was 106 on admission and it has increased now to 119. The patient has increased swelling of his legs for last many months and recently he was given hydrochlorothiazide for that. He denies any nausea or vomiting. He has this shortness of breath and has been following with pulmonary and he has been on steroid and also has been taking Lasix. The patient noticed that the swelling has been getting worse before he came to the hospital and since he is in the hospital the swelling has improved. His appetite is also noted good. He denies any nausea or vomiting. He admits that he has been drinking fluid. There is no history of diarrhea. PAST MEDICAL HISTORY 1. Chronic hyponatremia. 2. Possible COPD. 3. Chronic edema of the legs. PAST SURGICAL HISTORY None. REVIEW OF SYSTEMS The patient denies any headache, dizziness or blurring of vision. He does not have any confusion. He is still feeling weak and tired. His appetite is slightly improving. He admits that he was drinking more fluid before he came in here. Denies any history of diarrhea. He has chronic shortness of breath with cough which is mainly dry. There is no history of dysuria or hematuria. SOCIAL HISTORY The patient is . He smoked and also drink three to four beers a day. FAMILY HISTORY Noncontributory. ALLERGIES NO KNOWN DRUG ALLERGIES. MEDICATIONS Currently he is on: 1. Furosemide 40 mg IV daily. 2. Prednisone 40 mg q.24 h. 3. Albuterol nebulizer. PHYSICAL EXAMINATION GENERAL: On examination the patient is awake, alert. He is not in acute distress. VITAL SIGNS: His last blood pressure is 122/72, temperature is 96.8, oxygen saturation 94%. HEENT: Pupils are mid constricted. Nonicteric sclera, conjunctiva normal. NECK: Supple. JVD is not elevated. LUNGS: The patient has bilateral decreased air entry with basilar rales and scattered wheezing. HEART: S1-S2. Regular rhythm. ABDOMEN: Distended, soft, lax. There is no tenderness. EXTREMITIES: Mild edema in the legs. LABORATORY DATA Investigations, WBC count 21.7, hemoglobin 15.9, platelet count of 471, neutrophils 57%. Sodium 119. Potassium 3.4, chloride 81, bicarb 32, BUN 9, creatinine 0.5, glucose 118. Calcium 8.2. Creatinine kinase 256. INR is 1.1. Urinalysis showing that there is no protein. Specific gravity was 1.006 but this is an old one. There is no recent urine done. IMAGING A chest x-ray was done which shows that he has hyperinflation with some increased interstitial markings. ASSESSMENT/PLAN 1. Chronic hyponatremia with acute worsening. 2. Hypokalemia. 3. COPD. 4. Chronic edema of the legs. 5. Leukocytosis. The patient had very low sodium when he came in here, probably he has chronic hyponatremia with fluid retention and dilutional hyponatremia and it got more worse because of the hydrochlorothiazide. Now the sodium is improving. Agree with continuing the Lasix and continue the fluid restriction. I will check the urine osmolality and also get the urinalysis to see if he has any proteinuria which is unlikely. Discussed with the patient and the about restricting the fluid intake, avoid hydrochlorothiazide in the future. Thank you for the consultation and I will follow the patient while he is in the hospital. MD RAVEN Brown/PARKER /3:42 PM /5:31 PM NAYAN
[2017-12-16 19:59] VITALS: O2SAT 93
[2017-12-16 20:00] VITALS: BP 140/92; PULSE 106; PULSE 92; RESP 20; TEMP 97.9; O2SAT 93
[2017-12-16] MEDS: SODIUM CHLORIDE 0.9% FLUSH 10 ML FLUSH IVF PRN (21:08)
[2017-12-16 21:34] LABS: BILIRUBIN, URINE NEG (NEG); BLOOD, URINE LARGE (NEG); GLUCOSE,URINE NEG (NEG); KETONE, URINE 15 mg/dL (NEG); NITRITE,URINE NEG (NEG); PH, URINE 6.5 (5.0-8.5); URINE LEUKOCYTE ESTERASE SMALL (NEG)
[2017-12-16 21:41] LABS: SQUAMOUS EPITHELIAL CELL URINE 0-5 /hpf (0-5); URINE COLOR YELLOW (YELLW/STRAW)
[2017-12-17] VITALS (8 sets, daily range): BP systolic 113–142; BP diastolic 65–77; PULSE 85–109; RESP 18–22; TEMP 95.7–97.8; O2SAT 92–96
[2017-12-17] MEDS: CHLORHEXIDINE GLUCONATE 2 % 1 PACK (2 CLOTHS)(taper/protocol) TOPICAL SCH (04:00)
[2017-12-17] MEDS: RESP: ALBUTEROL 2.5 MG/3 ML NEB (SCH) NEB ×2 (07:38→14:07)
[2017-12-17] MEDS: FUROSEMIDE 40 MG/4 ML VIAL IV PUSH SCH (08:31)
[2017-12-17] MEDS: UMECLIDINIUM 62.5 MCG/VILANTEROL 25 MCG INHALER INH SCH (10:26)
--- NOTE | 2017-12-17 14:03 | HHI.PR ---
Subjective Remarks Patient seen and evaluated today in follow-up for hyponatremia. Original sodium level is 106. Yesterday was 119. He says he is less foggy Objective Vitals Vital Signs Date Time Temp Pulse Resp B/P (MAP) Pulse Ox O2 Delivery O2 Flow Rate FiO2 12/17/17 08:00 97.3 89 22 142/77 (98) 93 12/17/17 07:30 96 Nasal Cannula 1.00 12/17/17 04:00 97.4 85 20 127/76 (93) 95 12/17/17 00:00 95.7 92 20 129/75 (93) 94 12/16/17 20:00 106 12/16/17 20:00 93 Nasal Cannula 1.00 12/16/17 20:00 97.9 92 20 140/92 (108) 93 12/16/17 19:59 93 Nasal Cannula 1.00 12/16/17 16:00 97.0 84 20 118/66 (83) 94 I/O 12/16/17 12/16/17 12/16/17 12/17/17 12/17/17 12/17/17 07:00 15:00 23:00 07:00 15:00 23:00 Intake Total 230 ml 425 ml 240 ml 240 ml Output Total 850 ml 1050 ml 400 ml Balance 230 ml -425 ml -810 ml -160 ml Intake Oral 425 ml 240 ml 240 ml IV Total 230 ml Output Urine Total 850 ml 1050 ml 400 ml # Bowel Movements 0 0 0 Result Diagram: 12/15/17 0829 12/16/17 0550 Imaging Last Impressions Chest X-Ray 12/13/17 1359 Signed Impressions: Service Date/Time: Wednesday, December 13, 2017 14:25 - CONCLUSION: 1. No acute infiltrates. 2. Hyperaeration with chronic interstitial changes bilaterally. Kishan Alex MD Objective Remarks GENERAL: This is a well-nourished, well-developed patient, in no apparent distress. CARDIOVASCULAR: Regular rate and rhythm without murmurs, gallops, or rubs. RESPIRATORY: Clear to auscultation. Breath sounds equal bilaterally. No wheezes , rales, or rhonchi. GASTROINTESTINAL: Abdomen soft, non-tender, nondistended. Normal active bowel sounds MUSCULOSKELETAL: Extremities without clubbing, cyanosis, or edema. NEURO: Alert & Oriented x4 to person, place, time, situation. Moves all ext x4 A/P Problem List: (1) COPD (chronic obstructive pulmonary disease) ICD Code: J44.9 - Chronic obstructive pulmonary disease, unspecified Plan: Recently seen by his jelly maker Dr. Guadarrama and prescribed oxygen Continue with bronchodilators by nebulizer as needed Taper steroids (2) Hyponatremia ICD Code: E87.1 - Hypo-osmolality and hyponatremia Status: Acute Plan: With fluid restriction and Lasix Nephrology consult appreciated Avoid hydrochlorothiazide Taper recent steroids Discharge Planning home pending Kiersten Roque MD Dec 17, 2017 14:03
--- NOTE | 2017-12-17 14:04 | HHI.FF ---
Face to Face Verification Diagnosis: (1) COPD (chronic obstructive pulmonary disease) (2) Leg edema (3) Hyponatremia Physical Therapy Order: Evaluate and Treat, Improve ambulation Home Health Nursing Order: Medical education Signs/symptoms of disease process I have seen patient Blaise Arreola on 12/17/17. My clinical findings support the need for the requested home health care services because: Patient has SOB Deconditioned w/ increased weakness I certify that my clinical findings support that this patient is homebound because: Unsteady gait/balance Kiersten Garcia MD Dec 17, 2017 14:04
[2017-12-17 15:10] LABS: BICARBONATE 35.6 MEQ/L (21.0-32.0); CALCIUM 8.5 MG/DL (8.5-10.1); CREATININE 0.81 MG/DL (0.60-1.30)
[2017-12-17] MEDS ORDERED: POTASSIUM CHLOR 20 MEQ PREMIX 100 ML IV ONE (15:45)
--- NOTE | 2017-12-17 15:48 | HHI.NPPN ---
Subjective History of Present Illness 72-year-old male with past medical history of chronic edema of the legs, history of chronic hyponatremia came to the hospital with complaint of shortness of breath and worsening edema of the legs. I was called to see the patient because of low sodium level. His sodium level was 106 on admission. Additional Remarks Patient is alert, started eating better, no SOB, edema improving. Review of Systems General Constitutional: Fatigue Cardiovascular Cardiac: Edema, MARC Objective Data Data 12/17/17 12/18/17 19:00 07:00 Intake Total 550 ml Output Total 1000 ml Balance -450 ml Intake Oral 550 ml Output Urine Total 1000 ml # Bowel Movements 0 Vital Signs Date Time Temp Pulse Resp B/P (MAP) Pulse Ox O2 Delivery O2 Flow Rate FiO2 12/17/17 14:39 Nasal Cannula 1.00 12/17/17 12:00 96.8 102 22 120/71 (87) 92 12/17/17 08:00 97.3 89 22 142/77 (98) 93 12/17/17 07:30 96 Nasal Cannula 1.00 12/17/17 04:00 97.4 85 20 127/76 (93) 95 12/17/17 00:00 95.7 92 20 129/75 (93) 94 12/16/17 20:00 106 12/16/17 20:00 93 Nasal Cannula 1.00 12/16/17 20:00 97.9 92 20 140/92 (108) 93 12/16/17 19:59 93 Nasal Cannula 1.00 12/16/17 16:00 97.0 84 20 118/66 (83) 94 -: 12/15/17 0829 12/17/17 1040 Physical Exam General Appearance: No Acute Distress, Comfortable Eyes Eye Exam: Pupils Equal Throat Throat Exam: Oral Mucosa [place] & Moist Pulmonary Resp Exam: Breath Sounds Equal, No Distress, Rhonchi, Decreased Bases Cardiology CV Exam: Regular, Normal Sinus Rhythm Gastrointestinal/Abdomen GI Exam: Soft, Non-Tender, Bowel Sounds Present, Non-Distended Genitourinary Exam: Clear Urine Extremeties Extremities Exam: Trace Edema Neurologic Neuro Exam: Alert, Awake, Oriented Psychiatric Psych Exam: Appropriate Responses Assessment/Plan Electrolyte Assessment: Hyponatremia Problem List: (1) Shortness of breath ICD Codes: R06.02 - Shortness of breath Status: Acute (2) Leg edema ICD Codes: R60.0 - Localized edema Status: Acute (3) COPD (chronic obstructive pulmonary disease) ICD Codes: J44.9 - Chronic obstructive pulmonary disease, unspecified (4) Hyponatremia ICD Codes: E87.1 - Hypo-osmolality and hyponatremia Status: Acute Plan Patient has Hyponatremia, with elevated urine Osmolality. Clinically has been in fluid overload status. Most likely has dilutional Hyponatremia. Na. is improving and now 123. On Lasix and fluid restriction. Continue same, follow the Na. level. If continue to improve can be discharged. K is low, will replace, and check Mg., was low before. Brionna Delgado MD Dec 17, 2017 15:47
[2017-12-17] MEDS: predniSONE 20 MG TAB PO SCH (18:17)
[2017-12-18] VITALS: BP 108/71; PULSE 70; RESP 18; TEMP 96.5; O2SAT 94
[2017-12-18 04:00] VITALS: BP 131/68; PULSE 80; RESP 18; TEMP 96.3; O2SAT 98
[2017-12-18] MEDS: CHLORHEXIDINE GLUCONATE 2 % 1 PACK (2 CLOTHS)(taper/protocol) TOPICAL SCH (04:00)
[2017-12-18 06:43] LABS: CALCIUM 8.3 MG/DL (8.5-10.1)
[2017-12-18 06:44] LABS: BICARBONATE 37.4 MEQ/L (21.0-32.0)
[2017-12-18 06:47] LABS: CREATININE 0.65 MG/DL (0.60-1.30)
[2017-12-18] MEDS ORDERED: POTASSIUM CHLORIDE 20 MEQ CONTROLLED RELEASE TAB PO ONE (07:30)
[2017-12-18 08:00] VITALS: BP 124/76; PULSE 84; PULSE 86; RESP 18; TEMP 96.4; O2SAT 96
[2017-12-18] MEDS: POTASSIUM CHLORIDE 20 MEQ CONTROLLED RELEASE TAB PO SCH ×2 (10:30→21:04)
[2017-12-18] MEDS: UMECLIDINIUM 62.5 MCG/VILANTEROL 25 MCG INHALER INH SCH (10:37)
--- NOTE | 2017-12-18 11:03 | HHI.PR ---
Subjective Remarks Patient seen today in follow-up for symptomatic acute on chronic hyponatremia. Sodium is 125 daily, patient more coherent. Discharge plans discussed with patient. Objective Vitals Vital Signs Date Time Temp Pulse Resp B/P (MAP) Pulse Ox O2 Delivery O2 Flow Rate FiO2 12/18/17 08:00 96.4 84 18 124/76 (92) 96 12/18/17 08:00 86 12/18/17 08:00 Nasal Cannula 1.00 21 12/18/17 04:00 96.3 80 18 131/68 (89) 98 12/18/17 00:00 96.5 70 18 108/71 (83) 94 12/17/17 20:45 95 21 12/17/17 20:00 109 12/17/17 20:00 96.3 96 18 118/69 (85) 94 12/17/17 20:00 94 Nasal Cannula 1.00 12/17/17 16:00 97.8 89 20 113/65 (81) 94 12/17/17 14:39 Nasal Cannula 1.00 12/17/17 12:00 96.8 102 22 120/71 (87) 92 I/O 12/17/17 12/17/17 12/17/17 12/18/17 12/18/17 12/18/17 07:00 15:00 23:00 07:00 15:00 23:00 Intake Total 240 ml 550 ml 300 ml 60 ml Output Total 400 ml 1000 ml 1200 ml Balance -160 ml -450 ml 300 ml -1140 ml Intake Oral 240 ml 550 ml 200 ml 60 ml IV Total 100 ml Output Urine Total 400 ml 1000 ml 1200 ml # Bowel Movements 0 0 1 Result Diagram: 12/15/17 0829 12/18/17 0540 Objective Remarks GENERAL: This is a well-nourished, well-developed patient, in no apparent distress. CARDIOVASCULAR: Regular rate and rhythm without murmurs, gallops, or rubs. RESPIRATORY: Clear to auscultation. Breath sounds equal bilaterally. No wheezes , rales, or rhonchi. GASTROINTESTINAL: Abdomen soft, non-tender, nondistended. Normal active bowel sounds MUSCULOSKELETAL: Extremities without clubbing, cyanosis, or edema. NEURO: Alert & Oriented x4 to person, place, time, situation. Moves all ext x4 A/P Problem List: (1) COPD (chronic obstructive pulmonary disease) ICD Code: J44.9 - Chronic obstructive pulmonary disease, unspecified Plan: With recent mild exacerbation, now resolved Recently seen by his drug abuse social worker Dr. Guadarrama and prescribed oxygen which will be available at discharge Continue with bronchodilators by nebulizer as needed Taper steroids (2) Hyponatremia ICD Code: E87.1 - Hypo-osmolality and hyponatremia Status: Acute Plan: With fluid restriction and Lasix Nephrology consult appreciated Avoid hydrochlorothiazide Taper recent steroids DC 3% saline Discharge Planning RENATA Ramsay and telemetry Likely discharge with home health in a.m. home pending Kiersten Roque MD Dec 18, 2017 11:03
[2017-12-18 12:00] VITALS: BP 131/80; PULSE 99; RESP 18; TEMP 97.3; O2SAT 94
[2017-12-18 16:00] VITALS: BP 112/83; PULSE 95; RESP 18; TEMP 98.2; O2SAT 94
--- NOTE | 2017-12-18 17:41 | HHI.NPPN ---
Subjective History of Present Illness 72-year-old male with past medical history of chronic edema of the legs, history of chronic hyponatremia came to the hospital with complaint of shortness of breath and worsening edema of the legs. I was called to see the patient because of low sodium level. His sodium level was 106 on admission. Additional Remarks Patient is alert, sitting on the chair, not in distress. Review of Systems General Constitutional: Fatigue Cardiovascular Cardiac: Edema, MARC Objective Data Data Vital Signs Date Time Temp Pulse Resp B/P (MAP) Pulse Ox O2 Delivery O2 Flow Rate FiO2 12/18/17 16:00 98.2 95 18 112/83 (93) 94 12/18/17 12:00 97.3 99 18 131/80 (97) 94 12/18/17 08:00 96.4 84 18 124/76 (92) 96 12/18/17 08:00 86 12/18/17 08:00 Nasal Cannula 1.00 21 12/18/17 04:00 96.3 80 18 131/68 (89) 98 12/18/17 00:00 96.5 70 18 108/71 (83) 94 12/17/17 20:45 95 21 12/17/17 20:00 109 12/17/17 20:00 96.3 96 18 118/69 (85) 94 12/17/17 20:00 94 Nasal Cannula 1.00 -: 12/15/17 0829 12/18/17 0540 Physical Exam General Appearance: No Acute Distress, Comfortable Eyes Eye Exam: Pupils Equal Throat Throat Exam: Oral Mucosa [place] & Moist Pulmonary Resp Exam: Breath Sounds Equal, No Distress, Rhonchi, Decreased Bases Cardiology CV Exam: Regular, Normal Sinus Rhythm Gastrointestinal/Abdomen GI Exam: Soft, Non-Tender, Bowel Sounds Present, Non-Distended Genitourinary Exam: Clear Urine Extremeties Extremities Exam: Trace Edema Neurologic Neuro Exam: Alert, Awake, Oriented Psychiatric Psych Exam: Appropriate Responses Assessment/Plan Electrolyte Assessment: Hyponatremia Problem List: (1) Shortness of breath ICD Codes: R06.02 - Shortness of breath Status: Acute (2) Leg edema ICD Codes: R60.0 - Localized edema Status: Acute (3) COPD (chronic obstructive pulmonary disease) ICD Codes: J44.9 - Chronic obstructive pulmonary disease, unspecified (4) Hyponatremia ICD Codes: E87.1 - Hypo-osmolality and hyponatremia Status: Acute Plan Patient has Hyponatremia, with elevated urine Osmolality. Clinically has been in fluid overload status. Most likely has dilutional Hyponatremia. Na. is improving and now 125. On Lasix and fluid restriction. Continue same, follow the Na. level. If continue to improve can be discharged. K is low, on replacement. Mg is normal now. Brionna Delgado MD Dec 18, 2017 17:40
[2017-12-18] MEDS: predniSONE 20 MG TAB PO SCH (19:16)
[2017-12-18 20:00] VITALS: BP 122/87; PULSE 86; RESP 20; TEMP 96.8; O2SAT 93
[2017-12-19] VITALS: BP 141/84; PULSE 79; RESP 20; TEMP 96.6; O2SAT 97
[2017-12-19] MEDS ORDERED: POTASSIUM CHLORIDE 20 MEQ CONTROLLED RELEASE TAB PO ONE (07:30)
[2017-12-19 08:00] VITALS: BP 141/85; PULSE 97; RESP 18; TEMP 97.4; O2SAT 96
[2017-12-19 08:35] LABS: BICARBONATE 35.8 MEQ/L (21.0-32.0); CALCIUM 8.5 MG/DL (8.5-10.1)
[2017-12-19 08:39] LABS: CREATININE 0.84 MG/DL (0.60-1.30)
[2017-12-19] MEDS: UMECLIDINIUM 62.5 MCG/VILANTEROL 25 MCG INHALER INH SCH (08:50)
[2017-12-19] MEDS: POTASSIUM CHLORIDE 20 MEQ CONTROLLED RELEASE TAB PO SCH (08:51)
[2017-12-19] MEDS ORDERED: FUROSEMIDE 20 MG TAB PO SCH (09:00)
[2017-12-19] MEDS ORDERED: PRED20 PO (11:33)
--- NOTE | 2017-12-19 11:38 | HHI.DS ---
Discharge Summary Admission Date Dec 13, 2017 at 15:52 Discharge Date: Dec 19, 2017 Admitting Diagnosis critical hyponatremia,leg edema, short of breath (1) COPD (chronic obstructive pulmonary disease) ICD Code: J44.9 - Chronic obstructive pulmonary disease, unspecified (2) Hyponatremia ICD Code: E87.1 - Hypo-osmolality and hyponatremia Status: Acute Procedures None Brief History - From Admission 72-year-old white male being admitted for symptomatic severe hyponatremia. Patient was in his usual state of health until about a few days ago when his significant other and noted that he he started becoming very slow in his thinking. She says that he became more fatigued in his energy level and slowed in his responses. In addition to that he had some increased shortness of breath and increased lower tremor he edema and went to his wire stitcher operator as well as just recently prescribed steroids as well as Lasix. He was brought in today due to the persistent in his A AND P TECHNICIAN symptoms and his inability to walk and carry his own weight. Significant other states that the patient doesn't make sense but is just very slow in his thinking. Patient herself denies any new pain anywhere. CBC/BMP: 12/15/17 0829 12/19/17 0815 Significant Findings Laboratory Tests Test 12/16/17 21:15 12/17/17 10:40 12/17/17 11:00 12/18/17 05:40 Urine Protein 100 mg/dL (NEG-TRACE) Urine Ketones 15 mg/dL (NEG) Urine Occult Blood LARGE (NEG) Urine Leukocyte Esterase SMALL (NEG) Urine RBC 4-9 /hpf (0-3) Urine WBC 6-8 /hpf (0-5) Random Glucose 107 MG/DL (74-106) 110 MG/DL (74-106) Sodium Level 123 MEQ/L (136-145) 125 MEQ/L (136-145) Potassium Level 3.0 MEQ/L (3.5-5.1) 3.3 MEQ/L (3.5-5.1) Chloride Level 82 MEQ/L (98-107) 84 MEQ/L (98-107) Carbon Dioxide Level 35.6 MEQ/L (21.0-32.0) 37.4 MEQ/L (21.0-32.0) Serum Osmolality 266 MOSM/KG (275-295) Calcium Level 8.3 MG/DL (8.5-10.1) Anion Gap 4 MEQ/L (5-15) Test 12/19/17 08:15 Random Glucose 137 MG/DL (74-106) Sodium Level 128 MEQ/L (136-145) Chloride Level 88 MEQ/L (98-107) Carbon Dioxide Level 35.8 MEQ/L (21.0-32.0) Anion Gap 4 MEQ/L (5-15) Imaging Last Impressions Chest X-Ray 12/13/17 0759 Signed Impressions: Service Date/Time: Wednesday, December 13, 2017 14:25 - CONCLUSION: 1. No acute infiltrates. 2. Hyperaeration with chronic interstitial changes bilaterally. Kishan Alex MD PE at Discharge GENERAL: This is a well-nourished, well-developed patient, in no apparent distress. CARDIOVASCULAR: Regular rate and rhythm without murmurs, gallops, or rubs. RESPIRATORY: Clear to auscultation. Breath sounds equal bilaterally. No wheezes , rales, or rhonchi. GASTROINTESTINAL: Abdomen soft, non-tender, nondistended. Normal active bowel sounds MUSCULOSKELETAL: Extremities without clubbing, cyanosis, or edema. NEURO: Alert & Oriented x4 to person, place, time, situation. Moves all ext x4 Pt update on day of discharge Patient seen today in follow-up for hyponatremia. Sodium today is 128. Patient doing very well like to go home. I did discuss the patient's primary care doctor's office Dr. Jane regarding outpatient labs and follow-up which has been arranged for Saturday afternoon Hospital Course This patient is a very pleasant 72-year-old gentleman who appeared to be quite volume overloaded with associated hyponatremia. Recently he was treated for COPD exacerbation and given steroids. His sodium was 106 on arrival. Patient required 3% saline as well as further normal saline to improve his sodium. He was seen by nephrology. Overall he is improved clinically and hospital for discharge today Pt Condition on Discharge: Fair Discharge Disposition: Disch w/ Home Health Serv Discharge Time: > 30 minutes Discharge Instructions DIET: Follow Instructions for: As Tolerated, No Restrictions Activities you can perform: Regular-No Restrictions Kiersten Garcia MD Dec 19, 2017 11:38
--- NOTE | 2017-12-19 12:18 | HHI.NPPN ---
Subjective History of Present Illness 72-year-old male with past medical history of chronic edema of the legs, history of chronic hyponatremia came to the hospital with complaint of shortness of breath and worsening edema of the legs. I was called to see the patient because of low sodium level. His sodium level was 106 on admission. Additional Remarks Patient is alert, sitting on the chair, breathing is better, eating better. Review of Systems General Constitutional: Fatigue Cardiovascular Cardiac: Edema, MARC Objective Data Data 12/19/17 12/20/17 19:00 07:00 # Bowel Movements 1 Vital Signs Date Time Temp Pulse Resp B/P (MAP) Pulse Ox O2 Delivery O2 Flow Rate FiO2 12/19/17 08:00 97.4 97 18 141/85 (103) 96 12/19/17 01:06 Nasal Cannula 1.00 12/19/17 00:00 96.6 79 20 141/84 (103) 97 12/18/17 20:00 96.8 86 20 122/87 (99) 93 12/18/17 16:00 98.2 95 18 112/83 (93) 94 -: 12/15/17 0829 12/19/17 0815 Physical Exam General Appearance: No Acute Distress, Comfortable Eyes Eye Exam: Pupils Equal Throat Throat Exam: Oral Mucosa [place] & Moist Pulmonary Resp Exam: Breath Sounds Equal, No Distress, Rhonchi, Decreased Bases Cardiology CV Exam: Regular, Normal Sinus Rhythm Gastrointestinal/Abdomen GI Exam: Soft, Non-Tender, Bowel Sounds Present, Non-Distended Genitourinary Exam: Clear Urine Extremeties Extremities Exam: Trace Edema Neurologic Neuro Exam: Alert, Awake, Oriented Psychiatric Psych Exam: Appropriate Responses Assessment/Plan Electrolyte Assessment: Hyponatremia Problem List: (1) Shortness of breath ICD Codes: R06.02 - Shortness of breath Status: Acute (2) Leg edema ICD Codes: R60.0 - Localized edema Status: Acute (3) COPD (chronic obstructive pulmonary disease) ICD Codes: J44.9 - Chronic obstructive pulmonary disease, unspecified (4) Hyponatremia ICD Codes: E87.1 - Hypo-osmolality and hyponatremia Status: Acute Plan Patient has Hyponatremia, with elevated urine Osmolality. Clinically has been in fluid overload status. Most likely has dilutional Hyponatremia. Na. is improving and now 128. On Lasix and fluid restriction. K is better after replacement. For D/C, told to follow with his PCP. Can refer to Nephrology if needed. Brionna Delgado MD Dec 19, 2017 12:18
[2017-12-19] MEDS ORDERED: WALKER WHEELS/F1 MIS (14:12)
== END 2017-12-19 15:40 | disposition home health service (06) | DRG 640 ==
LOC: PHED 11:41 → PHEDA 15:52 → PHICU 17:22 → PH3A 12-15 21:40
PROVIDERS: ADMIT Hospitalist; ATTEND Hospitalist
DX: E87.1 Hypo-osmolality and hyponatremia (principal); G93.41 Metabolic encephalopathy; J44.9 Chronic obstructive pulmonary disease, unspecified; M62.82 Rhabdomyolysis; F17.200 Nicotine dependence, unspecified, uncomplicated; R60.0 Localized edema; Z72.89 Other problems related to lifestyle; R26.2 Difficulty in walking, not elsewhere classified; E87.70 Fluid overload, unspecified; E87.6 Hypokalemia; R63.1 Polydipsia; E66.9 Obesity, unspecified; Z68.27 Body mass index [BMI] 27.0-27.9, adult
CPT/HCPCS: 71045; 80048; 80076; 81001; 82550; 82552; 82607; 83735; 83880; 83930; 83935; 84100; 84295; 84300; 84443; 84484; 85007; 85027; 85610; 87641; 93005; 94640; 94664; 96374; J1940; J3480; J7512; J7613